=== PATIENT | female | born 1960 | race Caucasian/White ===

== ENCOUNTER 2018-07-17 07:56 | Emergency (ER) | payer MEDICAID ==
[~2018-07-17] VITALS: Ht 160 cm; Wt 96.8 kg
[2018-07-17 09:06] VITALS: BP 148/58
== END 2018-07-17 09:08 | disposition home or self-care (01) ==
LOC: ER 07:56
DX: M79.671 Pain in right foot (principal); Z88.0 Allergy status to penicillin; X58.XXXA Exposure to other specified factors, initial encounter; Y93.02 Activity, running; Y92.89 Other specified places as the place of occurrence of the external cause; Y99.8 Other external cause status
CPT/HCPCS: 73630; 99283

== ENCOUNTER 2018-07-19 09:14 | Emergency (ER) | payer MEDICAID ==
[~2018-07-19] VITALS: Ht 160 cm; Wt 97.3 kg
[2018-07-19 10:38] LABS: BASOPHILS % (AUTO) 0.5 % (0-1); EOSINOPHILS # (AUTO) 0.2 X10'3 (0-0.9); EOSINOPHILS % (AUTO) 2.3 % (0-6); HEMATOCRIT 35.2 % (35.0-45.0); HEMOGLOBIN 11.9 g/dl (12.0-16.0); LYMPHOCYTES # (AUTO) 1.4 X10'3 (1.1-4.8); LYMPHOCYTES % (AUTO) 16.9 % (21-51); MEAN CORPUSCULAR HGB CONC 33.9 % (33.0-36.5); MEAN CORPUSCULAR VOLUME 82.5 FL (78-98); MEAN PLATELET VOLUME 8.6 FL (7.4-10.4); MONOCYTES # (AUTO) 0.6 X10'3 (0-0.9); MONOCYTES % (AUTO) 7.3 % (2-12); NEUTROPHILS # (AUTO) 6.3 X10'3 (1.8-7.7); PLATELET COUNT 249 X10'3 (140-440); RED BLOOD COUNT 4.26 X10'6 (4.20-5.60); RED CELL DISTRIBUTION WIDTH 13.6 % (11.5-14.5); WHITE BLOOD COUNT 8.5 X10'3 (4.5-11.0)
[2018-07-19 10:48] LABS: ALANINE AMINOTRANSFERASE 22 U/L (12-78); ALBUMIN 3.3 G/DL (3.4-5.0); ALBUMIN/GLOBULIN RATIO 0.9 (1.1-1.5); ALKALINE PHOSPHATASE 97 IU/L (46-116); ANION GAP 9 (8-16); ASPARTATE AMINO TRANSFERASE 15 U/L (10-37); BILIRUBIN,TOTAL 0.4 MG/DL (0.1-1.0); BLOOD UREA NITROGEN 14 MG/DL (7-18); BUN/CREATININE RATIO 16.7 (6.6-38.0); CALCIUM 8.8 MG/DL (8.5-10.1); CHLORIDE 103 MMOL/L (99-107); CREATININE 0.84 MG/DL (0.40-0.90); GLUCOSE 101 MG/DL (70-104); POTASSIUM 4.1 MMOL/L (3.5-5.1); SODIUM 141 MMOL/L (135-145); TOTAL CARBON DIOXIDE 29.2 MMOL/L (24-32); TOTAL PROTEIN 7.1 G/DL (6.4-8.2); eGFR 69 ML/MIN
[2018-07-19 10:53] LABS: D-DIMER 0.52 MG/L FEU (0-0.50); PARTIAL THROMBOPLASTIN TIME 24 SECONDS (22-32); PROTHROMBIN TIME 9.8 SECONDS (9.0-12.0)
[2018-07-19] MEDS ORDERED: NAPR-56 PO (12:08)
[2018-07-19] MEDS ORDERED: HYDR-4383 PO (12:08)
[2018-07-19 12:15] VITALS: BP 140/86
== END 2018-07-19 12:16 | disposition home or self-care (01) ==
LOC: ER 09:14
DX: M79.671 Pain in right foot (principal); Z88.0 Allergy status to penicillin; Z79.899 Other long term (current) drug therapy
CPT/HCPCS: 36415; 73660; 80053; 84550; 85025; 85379; 85610; 85730; 93922; 93926; 99284

== ENCOUNTER 2019-08-06 09:42 | Inpatient (IN) | payer MEDICAID ==
[~2019-08-06] VITALS: Ht 160 cm; Wt 104.0 kg
[~2019-08-06 09:42] MED LIST: HYDR-4383 PO
[2019-08-06] MEDS ORDERED: normal saline 1000ML IV soln IVB ONE (10:05)
[2019-08-06] MEDS ORDERED: ondansetron/PF 4mg/2ml inj IV ONE (10:05)
[2019-08-06 10:35] LABS: BASOPHILS # (AUTO) 0.1 X10'3 (0-0.2); BASOPHILS % (AUTO) 0.7 % (0-1); EOSINOPHILS # (AUTO) 0.2 X10'3 (0-0.9); EOSINOPHILS % (AUTO) 2.1 % (0-6); HEMATOCRIT 28.6 % (35.0-45.0); LYMPHOCYTES # (AUTO) 1.1 X10'3 (1.1-4.8); LYMPHOCYTES % (AUTO) 14.5 % (21-51); MEAN CORPUSCULAR HEMOGLOBIN 24.1 PG (27.0-31.0); MEAN CORPUSCULAR HGB CONC 31.6 g/dL (33.0-36.5); MEAN CORPUSCULAR VOLUME 76.2 FL (78-98); MEAN PLATELET VOLUME 7.9 FL (7.4-10.4); MONOCYTES # (AUTO) 0.6 X10'3 (0-0.9); MONOCYTES % (AUTO) 7.6 % (2-12); NEUTROPHILS # (AUTO) 5.8 X10'3 (1.8-7.7); NEUTROPHILS % (AUTO) 75.1 % (42-75); PLATELET COUNT 314 X10'3 (140-440); RED BLOOD COUNT 3.75 X10'6 (4.20-5.60); RED CELL DISTRIBUTION WIDTH 16.1 % (11.5-14.5); WHITE BLOOD COUNT 7.6 X10'3 (4.5-11.0)
[2019-08-06] MEDS: morphine 4 MG/ML inj SYRINge IV PRN ×2 (10:41→15:32)
[2019-08-06 10:43] LABS: ALANINE AMINOTRANSFERASE 21 U/L (12-78); ALBUMIN 3.2 G/DL (3.4-5.0); ALBUMIN/GLOBULIN RATIO 0.8 (1.1-1.5); ALKALINE PHOSPHATASE 101 IU/L (46-116); ANION GAP 5 (8-16); ASPARTATE AMINO TRANSFERASE 13 U/L (10-37); BILIRUBIN,TOTAL 0.3 MG/DL (0.1-1.0); BLOOD UREA NITROGEN 13 MG/DL (7-18); CHLORIDE 104 MMOL/L (99-107); CREATININE 0.81 MG/DL (0.40-0.90); GLUCOSE 96 MG/DL (70-104); POTASSIUM 3.9 MMOL/L (3.5-5.1); SODIUM 139 MMOL/L (135-145); TOTAL CARBON DIOXIDE 30.1 MMOL/L (24-32); TOTAL PROTEIN 7.3 G/DL (6.4-8.2); eGFR 72 ML/MIN
[2019-08-06] MEDS ORDERED: vancomycin/NS 1 GM ADD-VANTAGE 250 ML IV ONE (11:05)
[2019-08-06] MEDS ORDERED: CefTRIAXone 2gm/D5W 50ml 50 ML IV ONE (11:05)
[2019-08-06] MEDS ORDERED: VANCOMYCIN 1gm/H2O 200ml PB 200 ML IV ONE (11:06)
[2019-08-06] MEDS ORDERED: iohexol 350MG/ML 100ml bottle IV ONE (11:07)
--- NOTE | 2019-08-06 11:15 | NUR ---
PT OFF TO CT
[2019-08-06] MEDS ORDERED: heparin 10,000 units/1 ML INJ IV ONE ×2 (14:15→14:20)
[2019-08-06] MEDS ORDERED: LANS15CA18 PO (14:30)
[2019-08-06] MEDS ORDERED: GABA-532 PO (14:30)
[2019-08-06] MEDS ORDERED: HYDR-3972 PO (14:30)
[2019-08-06] MEDS: heparin 25,000 UNIT/250ml bag 250 ML IV SCH (14:53)
[2019-08-06] MEDS ORDERED: magnesium 2GM in 50ml NS 50 ML IV PRN (15:10)
[2019-08-06] MEDS ORDERED: magnesium Cl slow-release 64mg tablet PO PRN (15:10)
[2019-08-06] MEDS ORDERED: potassium CL 10mEq/100ml bag 100 ML IV PRN ×2 (15:10)
[2019-08-06] MEDS ORDERED: magnesium 4gm in 100ml NS 100 ML IV PRN (15:10)
[2019-08-06] MEDS ORDERED: potassium Cl 20 mEq SR tablet PO PRN ×2 (15:10)
[2019-08-06] MEDS ORDERED: HYDROcodone/acetaminophen 5mg/325mg tablet PO PRN (15:10)
[2019-08-06 15:13] LABS: PARTIAL THROMBOPLASTIN TIME 23 SECONDS (22-32)
[2019-08-06] MEDS: normal saline 1000ml 1,000 ML IV SCH (15:35)
--- NOTE | 2019-08-06 15:43 | NUR ---
IR CALLED AND STATED THAT THE ANGIOGRAM OF THE RIGHT FOOT WILL BE DONE TOMORROW, TUESDAY, AND PATIENT SHOULD BE KEPT NPO AFTER MIDNIGHT IN PREP FOR THIS STUDY.
--- NOTE | 2019-08-06 15:58 | NUR ---
Pt given a meal tray. Pt has been sitting upright on the gurney eating her lunch. Pt is awaiting admission bed assignment. Pt is aware of the plan of care.
--- NOTE | 2019-08-06 18:37 | NUR ---
Problems reprioritized. Patient report given, questions answered & plan of care reviewed with Alexsandra WHITFIELD.
--- NOTE | 2019-08-06 18:38 | NUR ---
Pt reports heartburn and she did not take her rolaids or lansoprazole today to treat her usual GERD symptoms. Verbal order from Dr. Lee to continue patient's routine acid reducing medications. Order placed in the system and will be given.
--- NOTE | 2019-08-06 18:43 | NUR ---
Attempted to phone report, Receiving nurse is not available to take report and will phone back to get report shortly.
--- NOTE | 2019-08-06 18:59 | NUR ---
Pt medicated as ordered for pain with PRN norco dose. Tums order is pending approval from pharmacy to help with the patient's report of indigestion.
--- NOTE | 2019-08-06 19:01 | NUR ---
Attempted once again to phone report to the admission unit. Receiving RN and Charge nurse are unable to receive report at this time and will phone back for report.
--- NOTE | 2019-08-06 19:20 | NUR ---
received pt from er via w/c. Pt alert and oriented. Oriented to room and routine. Addendum: 08/07/19 at 0204 by Loida Rojas RN Amended: Links added.
[2019-08-06 19:45] VITALS: BP 128/65
[2019-08-06] MEDS: docusate sod 100mg capsule PO SCH (20:00)
[2019-08-06] MEDS: K and/or MAG REPLACEMENT MC SCH (20:00)
--- NOTE | 2019-08-06 21:18 | NUR ---
pt wants tums now, message sent to pharmacy. labs drawn. Addendum: 08/06/19 at 2119 by Loida Rojas RN Amended: Links added.
[2019-08-06] MEDS: calcium carbonate 500mg chew tablet PO PRN (21:29)
[2019-08-06] MEDS: HYDROcodone/acetaminophen 10/325mg tab PO PRN (22:58)
[2019-08-06] MEDS: gabapentin 300mg capsule PO SCH (22:58)
[2019-08-07] VITALS (10 sets, daily range): BP systolic 114–140; BP diastolic 56–111
[2019-08-07 02:52] LABS: BASOPHILS # (AUTO) 0.1 X10'3 (0-0.2); BASOPHILS % (AUTO) 1.2 % (0-1); EOSINOPHILS # (AUTO) 0.2 X10'3 (0-0.9); EOSINOPHILS % (AUTO) 2.8 % (0-6); HEMATOCRIT 27.1 % (35.0-45.0); HEMOGLOBIN 8.5 g/dl (12.0-16.0); LYMPHOCYTES % (AUTO) 16.2 % (21-51); MEAN CORPUSCULAR HEMOGLOBIN 24.2 PG (27.0-31.0); MEAN CORPUSCULAR HGB CONC 31.5 g/dL (33.0-36.5); MEAN CORPUSCULAR VOLUME 76.9 FL (78-98); MEAN PLATELET VOLUME 8.9 FL (7.4-10.4); MONOCYTES # (AUTO) 0.5 X10'3 (0-0.9); MONOCYTES % (AUTO) 8.2 % (2-12); NEUTROPHILS # (AUTO) 4.6 X10'3 (1.8-7.7); NEUTROPHILS % (AUTO) 71.6 % (42-75); PLATELET COUNT 167 X10'3 (140-440); RED BLOOD COUNT 3.52 X10'6 (4.20-5.60); WHITE BLOOD COUNT 6.4 X10'3 (4.5-11.0)
[2019-08-07 02:54] LABS: PARTIAL THROMBOPLASTIN TIME 62 SECONDS (22-32)
[2019-08-07 02:56] LABS: ALBUMIN 2.8 G/DL (3.4-5.0); ANION GAP 6 (8-16); BLOOD UREA NITROGEN 8 MG/DL (7-18); BUN/CREATININE RATIO 11.1 (6.6-38.0); CALCIUM 8.3 MG/DL (8.5-10.1); CHLORIDE 107 MMOL/L (99-107); CREATININE 0.72 MG/DL (0.40-0.90); GLUCOSE 106 MG/DL (70-104); MAGNESIUM 1.8 MG/DL (1.5-2.4); POTASSIUM 3.8 MMOL/L (3.5-5.1); SODIUM 142 MMOL/L (135-145); TOTAL CARBON DIOXIDE 29.1 MMOL/L (24-32); eGFR 83 ML/MIN
[2019-08-07] MEDS: HYDROcodone/acetaminophen 10/325mg tab PO PRN ×2 (04:57→09:55)
[2019-08-07] MEDS: heparin 25,000 UNIT/250ml bag 250 ML IV SCH ×2 (05:02→17:24)
--- NOTE | 2019-08-07 06:53 | NUR ---
Problems reprioritized. Patient report given, questions answered & plan of care reviewed with NAHID Keys Addendum: 08/07/19 at 0653 by Loida Rojas RN Amended: Links added.
--- NOTE | 2019-08-07 06:53 | NUR ---
Patient in room [facility]. I have received report from Alexsandra WHITFIELD and had the opportunity to ask questions and assume patient care.
[2019-08-07] MEDS: K and/or MAG REPLACEMENT MC SCH ×2 (08:00→20:00)
[2019-08-07] MEDS: docusate sod 100mg capsule PO SCH ×2 (08:06→20:38)
[2019-08-07] MEDS: pantoprazole 40mg Tablet.DR PO SCH (08:06)
[2019-08-07] MEDS: gabapentin 300mg capsule PO SCH ×3 (08:06→20:38)
[2019-08-07 08:45] LABS: PARTIAL THROMBOPLASTIN TIME 74 SECONDS (22-32)
--- NOTE | 2019-08-07 09:30 | NUR ---
Patient ptt was in theraputic range. Patient heparin was not adjusted at this time.
[2019-08-07] MEDS ORDERED: midazolam 2 mg/2 ml injection IV PRN (11:05)
[2019-08-07] MEDS ORDERED: fentaNYL/PF 50MCG/1 ML 2ML syringe IV PRN (11:05)
[2019-08-07] MEDS ORDERED: heparin 1,000 UNITS/NS 500ml 500 ML ICATH ONE (11:05)
[2019-08-07] MEDS ORDERED: LIDOcaine 1%/PF 5ML 10 MG/ML VIAL SQ ONE ×2 (11:05→11:20)
[2019-08-07] MEDS ORDERED: heparin 1,000 UNITS/NS 500ml 500 ML ONE (11:21)
[2019-08-07] MEDS ORDERED: iohexol 300mg/ml 100ml inj. ONE (11:21)
[2019-08-07] MEDS ORDERED: LIDOcaine 1%/PF 5ML 10 MG/ML VIAL ONE (11:21)
[2019-08-07] MEDS ORDERED: midazolam 2 mg/2 ml injection ONE ×2 (11:30→12:10)
[2019-08-07] MEDS ORDERED: fentaNYL/PF 50MCG/1 ML 2ML syringe ONE ×3 (11:31→13:03)
[2019-08-07] MEDS ORDERED: LIDOcaine/PRILOcaine 5gm cream TP ONE (12:00)
[2019-08-07] MEDS ORDERED: HYDROmorphone 1 mg/ml syringe ONE (13:49)
[2019-08-07] MEDS ORDERED: HYDROmorphone 1 mg/ml syringe IM ONE (13:50)
[2019-08-07] MEDS ORDERED: CADD PCA waste documentation MC PRN (13:55)
[2019-08-07] MEDS ORDERED: naloxone 0.4 mg/ml inj IV PRN (13:55)
[2019-08-07] MEDS: HYDROmorphone/NS 1 mg/ml CADD 50 ML IV SCH ×6 (15:00→23:00)
--- NOTE | 2019-08-07 16:44 | NUR ---
pt arrived to 2039 from IR. 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 Heparin gtt infusing through PIV and TPA infusing through L sheath. Pt A&Ox4 w/o complaints of pain. VSS upon arrival. Plan to return to IR tomorrow to evaluate effectiveness of treatment.
--- NOTE | 2019-08-07 16:44 | NUR ---
Problems reprioritized. Patient report given, questions answered & plan of care reviewed with Melanie WHITFIELD.
[2019-08-07] MEDS: tPA-cathflo 2mg/2ml IV flush 4 MG in normal saline 100ml IV soln 100 ML ICATH SCH ×2 (17:22→19:17)
--- NOTE | 2019-08-07 17:46 | NUR ---
BELONGINGS: took home pts purse and wallet and phone. Clothing and glasses remains at bedside
[2019-08-07] MEDS: normal saline 1000ml 1,000 ML IV SCH (19:24)
[2019-08-07 21:58] LABS: PARTIAL THROMBOPLASTIN TIME 30 SECONDS (22-32)
--- NOTE | 2019-08-07 22:27 | NUR ---
Called Dr. Merritt with Ptt 30, Fibrinogen 171 results. Per MD keep Heparin running at 1000 and get labs q6hrs.
[2019-08-08] VITALS (24 sets, daily range): BP systolic 94–144; BP diastolic 48–84
[2019-08-08] MEDS: HYDROmorphone/NS 1 mg/ml CADD 50 ML IV SCH ×12 (01:00→23:00)
[2019-08-08] MEDS: heparin 25,000 UNIT/250ml bag 250 ML IV SCH (01:15)
[2019-08-08 03:49] LABS: BASOPHILS % (AUTO) 0.5 % (0-1); EOSINOPHILS # (AUTO) 0.1 X10'3 (0-0.9); EOSINOPHILS % (AUTO) 1.4 % (0-6); HEMATOCRIT 31.1 % (35.0-45.0); HEMOGLOBIN 9.8 g/dl (12.0-16.0); LYMPHOCYTES # (AUTO) 0.6 X10'3 (1.1-4.8); LYMPHOCYTES % (AUTO) 7.3 % (21-51); MEAN CORPUSCULAR HEMOGLOBIN 23.8 PG (27.0-31.0); MEAN CORPUSCULAR HGB CONC 31.6 g/dL (33.0-36.5); MEAN CORPUSCULAR VOLUME 75.5 FL (78-98); MEAN PLATELET VOLUME 8.6 FL (7.4-10.4); MONOCYTES # (AUTO) 0.7 X10'3 (0-0.9); MONOCYTES % (AUTO) 8.9 % (2-12); NEUTROPHILS # (AUTO) 6.6 X10'3 (1.8-7.7); NEUTROPHILS % (AUTO) 81.9 % (42-75); PLATELET COUNT 248 X10'3 (140-440); RED BLOOD COUNT 4.12 X10'6 (4.20-5.60)
[2019-08-08 03:58] LABS: ALBUMIN 3.1 G/DL (3.4-5.0); ANION GAP 7 (8-16); BLOOD UREA NITROGEN 7 MG/DL (7-18); BUN/CREATININE RATIO 8.3 (6.6-38.0); CALCIUM 8.8 MG/DL (8.5-10.1); CHLORIDE 103 MMOL/L (99-107); CREATININE 0.84 MG/DL (0.40-0.90); GLUCOSE 108 MG/DL (70-104); MAGNESIUM 1.8 MG/DL (1.5-2.4); POTASSIUM 4.1 MMOL/L (3.5-5.1); SODIUM 139 MMOL/L (135-145); TOTAL CARBON DIOXIDE 29.5 MMOL/L (24-32); eGFR 69 ML/MIN
[2019-08-08 04:01] LABS: PARTIAL THROMBOPLASTIN TIME 33 SECONDS (22-32)
[2019-08-08] MEDS: tPA-cathflo 2mg/2ml IV flush 4 MG in normal saline 100ml IV soln 100 ML ICATH SCH (04:36)
--- NOTE | 2019-08-08 06:18 | NUR ---
Problems reprioritized. Patient report given, questions answered & plan of care reviewed with NAHID Aguilera.
[2019-08-08] MEDS: K and/or MAG REPLACEMENT MC SCH ×2 (06:46→20:00)
[2019-08-08] MEDS: docusate sod 100mg capsule PO SCH ×2 (07:12→20:39)
[2019-08-08] MEDS: gabapentin 300mg capsule PO SCH ×3 (07:12→20:39)
[2019-08-08] MEDS: pantoprazole 40mg Tablet.DR PO SCH (07:12)
[2019-08-08] MEDS ORDERED: iohexol 300mg/ml 100ml inj. ONE (09:07)
[2019-08-08 09:31] LABS: HEMOGLOBIN 8.9 g/dl (12.0-16.0); MEAN CORPUSCULAR HEMOGLOBIN 24.1 PG (27.0-31.0); MEAN CORPUSCULAR HGB CONC 31.7 g/dL (33.0-36.5); MEAN CORPUSCULAR VOLUME 76.1 FL (78-98); PLATELET COUNT 223 X10'3 (140-440); RED BLOOD COUNT 3.68 X10'6 (4.20-5.60); RED CELL DISTRIBUTION WIDTH 15.8 % (11.5-14.5); WHITE BLOOD COUNT 9.6 X10'3 (4.5-11.0)
[2019-08-08] MEDS ORDERED: HYDROmorphone 1 mg/ml syringe ONE (09:53)
[2019-08-08 09:55] LABS: PARTIAL THROMBOPLASTIN TIME 34 SECONDS (22-32)
--- NOTE | 2019-08-08 10:35 | NUR ---
Returned to 2039 from IR. L sheath removed with minx closure in place, bedrest for 2hrs. TPA infusion and Heparin infusion was stopped in IR.
[2019-08-08] MEDS: calcium carbonate 500mg chew tablet PO PRN (11:35)
--- NOTE | 2019-08-08 18:35 | NUR ---
Patient in room ICU 2039. I have received report from Willy WHITFIELD, and had the opportunity to ask questions and assume patient care.
--- NOTE | 2019-08-08 19:30 | NUR ---
PT resting with no s/s of distress noted at this time. PT is on 2L O2 to NC, d/t desating when asleep. PT has Dilaudid CADD which has been effective for pain control. PT requested that the Drsg to RT lateral foot be removed d/t causing discomfort and irritation. Bed is locked and low. Call light is within reach. Will continue to monitor.
[2019-08-08] MEDS: apixaban 5mg tablet PO SCH (20:39)
--- NOTE | 2019-08-08 23:00 | NUR ---
PT sleeping with no s/s of distress noted at this time. VSS. Bed is locked and low. Call light is within reach. Will continue to monitor.
[2019-08-09] VITALS (19 sets, daily range): BP systolic 113–138; BP diastolic 37–74
[2019-08-09] MEDS: HYDROmorphone/NS 1 mg/ml CADD 50 ML IV SCH ×12 (01:00→23:00)
--- NOTE | 2019-08-09 02:30 | NUR ---
PT sleeping with no s/s of distress noted at this time. VSS. Bed is locked and low. Call light is within reach. Will continue to monitor.
[2019-08-09 04:38] LABS: BASOPHILS % (AUTO) 0.5 % (0-1); EOSINOPHILS # (AUTO) 0.1 X10'3 (0-0.9); EOSINOPHILS % (AUTO) 1.2 % (0-6); HEMATOCRIT 26.5 % (35.0-45.0); HEMOGLOBIN 8.4 g/dl (12.0-16.0); LYMPHOCYTES # (AUTO) 0.7 X10'3 (1.1-4.8); LYMPHOCYTES % (AUTO) 11.1 % (21-51); MEAN CORPUSCULAR HEMOGLOBIN 23.9 PG (27.0-31.0); MEAN CORPUSCULAR HGB CONC 31.6 g/dL (33.0-36.5); MEAN CORPUSCULAR VOLUME 75.6 FL (78-98); MEAN PLATELET VOLUME 8.3 FL (7.4-10.4); MONOCYTES # (AUTO) 0.8 X10'3 (0-0.9); MONOCYTES % (AUTO) 12.1 % (2-12); NEUTROPHILS % (AUTO) 75.1 % (42-75); PLATELET COUNT 202 X10'3 (140-440); RED BLOOD COUNT 3.51 X10'6 (4.20-5.60); RED CELL DISTRIBUTION WIDTH 16.2 % (11.5-14.5); WHITE BLOOD COUNT 6.6 X10'3 (4.5-11.0)
[2019-08-09 04:54] LABS: ALBUMIN 2.7 G/DL (3.4-5.0); ANION GAP 5 (8-16); BLOOD UREA NITROGEN 10 MG/DL (7-18); BUN/CREATININE RATIO 14.7 (6.6-38.0); CALCIUM 8.3 MG/DL (8.5-10.1); CHLORIDE 104 MMOL/L (99-107); CREATININE 0.68 MG/DL (0.40-0.90); GLUCOSE 109 MG/DL (70-104); MAGNESIUM 1.9 MG/DL (1.5-2.4); SODIUM 140 MMOL/L (135-145); TOTAL CARBON DIOXIDE 30.6 MMOL/L (24-32); eGFR 88 ML/MIN
--- NOTE | 2019-08-09 06:15 | NUR ---
Patient in room ICU 2039. I have received report from paperhanger assistant and had the opportunity to ask questions and assume patient care.
--- NOTE | 2019-08-09 06:37 | NUR ---
Problems reprioritized. Patient report given, questions answered & plan of care reviewed with Cookie WHITFIELD.
[2019-08-09] MEDS: gabapentin 300mg capsule PO SCH ×3 (08:06→23:07)
[2019-08-09] MEDS: pantoprazole 40mg Tablet.DR PO SCH (08:06)
[2019-08-09] MEDS: docusate sod 100mg capsule PO SCH ×2 (08:06→23:07)
[2019-08-09] MEDS: apixaban 5mg tablet PO SCH ×2 (08:06→23:07)
[2019-08-09] MEDS: normal saline 1000ml 1,000 ML IV SCH (08:10)
[2019-08-09] MEDS: K and/or MAG REPLACEMENT MC SCH ×2 (08:12→20:00)
--- NOTE | 2019-08-09 15:43 | NUR ---
Call ICU to get report on pt. Primary Rn Rosalina in a procedure and unavailable at this time. She will call at a later time.
--- NOTE | 2019-08-09 17:00 | NUR ---
Pt. received from ICU, report and chart received. Pt. oriented to room, call light provided, fluids TKO started per order. CADD assessed by both RNs. Pulses checked and intact.
--- NOTE | 2019-08-09 17:05 | NUR ---
Transferred to surg with no tele via wheel chair.
--- NOTE | 2019-08-09 17:43 | NUR ---
PAGER ID: [phone] MESSAGE: Mary Sanabria [id number] Transferred from ICU to med surg. 2 episodes of emesis- no Zofran ordered. Janey - surgical floor
[2019-08-09] MEDS ORDERED: ondansetron/PF 4mg/2ml inj IV PRN (17:50)
--- NOTE | 2019-08-09 18:03 | NUR ---
Pt. had one episode of emesis when she reached med-surg floor. Stated she threw up in ICU when she stood up as well. Unknown amount due to pt. using the trash can to vomit into. Called gayla Granados ordered and administered. Pt. already states she feels much better.
--- NOTE | 2019-08-09 18:33 | NUR ---
Gave report to Lottie Steven Rn
--- NOTE | 2019-08-09 18:43 | NUR ---
Patient in room [facility]. I have received report from NAHID Hurtado and had the opportunity to ask questions and assume patient care. Addendum: 08/09/19 at 1843 by Madyson Graves RN Amended: Links added.
[2019-08-09] MEDS ORDERED: calcium carbonate 500mg chew tablet PO PRN (19:02)
[2019-08-10] VITALS: BP 111/54
[2019-08-10] MEDS: HYDROmorphone/NS 1 mg/ml CADD 50 ML IV SCH ×7 (01:00→13:00)
[2019-08-10 05:54] LABS: BASOPHILS % (AUTO) 0.5 % (0-1); EOSINOPHILS # (AUTO) 0.2 X10'3 (0-0.9); EOSINOPHILS % (AUTO) 2.5 % (0-6); HEMATOCRIT 25.5 % (35.0-45.0); LYMPHOCYTES # (AUTO) 1.5 X10'3 (1.1-4.8); LYMPHOCYTES % (AUTO) 18.9 % (21-51); MEAN CORPUSCULAR HEMOGLOBIN 23.7 PG (27.0-31.0); MEAN CORPUSCULAR HGB CONC 31.5 g/dL (33.0-36.5); MEAN CORPUSCULAR VOLUME 75.4 FL (78-98); MEAN PLATELET VOLUME 8.3 FL (7.4-10.4); MONOCYTES # (AUTO) 0.9 X10'3 (0-0.9); MONOCYTES % (AUTO) 11.3 % (2-12); NEUTROPHILS # (AUTO) 5.1 X10'3 (1.8-7.7); NEUTROPHILS % (AUTO) 66.8 % (42-75); PLATELET COUNT 224 X10'3 (140-440); RED BLOOD COUNT 3.39 X10'6 (4.20-5.60); RED CELL DISTRIBUTION WIDTH 16.2 % (11.5-14.5); WHITE BLOOD COUNT 7.7 X10'3 (4.5-11.0)
[2019-08-10 06:14] LABS: ALBUMIN 2.7 G/DL (3.4-5.0); ANION GAP 2 (8-16); BLOOD UREA NITROGEN 10 MG/DL (7-18); BUN/CREATININE RATIO 12.7 (6.6-38.0); CALCIUM 8.7 MG/DL (8.5-10.1); CHLORIDE 104 MMOL/L (99-107); CREATININE 0.79 MG/DL (0.40-0.90); GLUCOSE 101 MG/DL (70-104); POTASSIUM 3.9 MMOL/L (3.5-5.1); SODIUM 140 MMOL/L (135-145); TOTAL CARBON DIOXIDE 34.2 MMOL/L (24-32); eGFR 74 ML/MIN
--- NOTE | 2019-08-10 06:37 | NUR ---
Problems reprioritized. Patient report given, questions answered & plan of care reviewed with NAHID Alvarado. Addendum: 08/10/19 at 0638 by Madyson Graves RN Amended: Links added.
--- NOTE | 2019-08-10 07:02 | NUR ---
Patient in room [facility]. I have received report from Lottie Steven RN and had the opportunity to ask questions and assume patient care.
[2019-08-10 08:00] VITALS: BP 122/73
[2019-08-10] MEDS: K and/or MAG REPLACEMENT MC SCH (08:00)
[2019-08-10] MEDS: gabapentin 300mg capsule PO SCH ×2 (09:22→14:06)
[2019-08-10] MEDS: pantoprazole 40mg Tablet.DR PO SCH (09:22)
[2019-08-10] MEDS: apixaban 5mg tablet PO SCH (09:22)
[2019-08-10] MEDS: docusate sod 100mg capsule PO SCH (09:22)
[2019-08-10 11:00] VITALS: BP 125/53
[2019-08-10] MEDS ORDERED: APIX5TAB3 PO (14:18)
--- NOTE | 2019-08-10 15:30 | NUR ---
Pt DC to home, pt A & O, in no apparent discomfort. Pt Verbalizes understanding of all DC instructions. Pt shown and able to demonstrate how to do wound care. Pt given supplies for wound care. Pt will follow up with PCP within a week and was ablet o teach back S&S of infection on wounds. Pt packed and carried out all personal belongings to the car. Pt wheeled out to the front where was going to take her home. Pt was in such a hurry to leave, pt continued tried to stephens the process of DC. Pt extremely anxious to go home. Pt Tired of being in the hospital.
[2019-08-10] MEDS ORDERED: famotidine 10mg tablet PO SCH (21:00)
== END 2019-08-10 16:15 | disposition home or self-care (01) | DRG 197 ==
LOC: ER 09:42 → ED HOLD 15:37 → SUR 3N 19:20 → ICU 2S 08-07 16:06 → SUR 3N 08-09 17:05
PROVIDERS: ADMIT Internal Medicine; ATTEND Internal Medicine
PROC: B41C1ZZ Fluoroscopy of Pelvic Arteries using Low Osmolar Contrast (ICD-10-PCS; principal; 2019-08-07)
PROC: B41F1ZZ Fluoroscopy of Right Lower Extremity Arteries using Low Osmolar Contrast (ICD-10-PCS; 2019-08-07)
PROC: 3E05317 Introduction of Other Thrombolytic into Peripheral Artery, Percutaneous Approach (ICD-10-PCS; 2019-08-07)
PROC: B41F1ZZ Fluoroscopy of Right Lower Extremity Arteries using Low Osmolar Contrast (ICD-10-PCS; 2019-08-08)
DX: I70.201 Unspecified atherosclerosis of native arteries of extremities, right leg (principal); L03.115 Cellulitis of right lower limb; Z88.0 Allergy status to penicillin; F17.210 Nicotine dependence, cigarettes, uncomplicated; I10 Essential (primary) hypertension; K21.9 Gastro-esophageal reflux disease without esophagitis; F12.90 Cannabis use, unspecified, uncomplicated; Z79.01 Long term (current) use of anticoagulants
CPT/HCPCS: 36245; 36415; 37211; 37213; 37214; 73630; 73706; 75710; 76937; 77001; 80048; 80053; 82948; 83605; 83735; 84145; 85025; 85027; 85384; 85730; 87040; 87081; 93926; 96365; 96367; 96375; 99152; 99153; 99291; C1729; C1760; C1769; C1894; G0378; J0696; J1170; J1644; J2250; J2270; J2405; J2997; J3010; J3370; J7030; Q9967